=== PATIENT | female | born 1950 | race Caucasian/White ===

== ENCOUNTER 2019-02-08 09:50 | Outpatient (CLI) | payer BC ==
[2013-11-20 09:52] VITALS: O2SAT 97
== END 2019-02-08 09:51 | disposition home or self-care (01) ==
LOC: CONVCARE 09:50
PROVIDERS: ATTEND Orthopaedic Surgery
DX: M25.562 Pain in left knee (principal); M25.561 Pain in right knee; M17.0 Bilateral primary osteoarthritis of knee
CPT/HCPCS: 73560; 73565

== ENCOUNTER 2019-03-27 22:48 | Observation (INO) | payer BC, MEDICARE ==
[2019-03-27] MEDS ORDERED: MORPHINE SULFATE 10 MG/ML SOL IV ONE ×2 (23:08→23:55)
[2019-03-27] MEDS ORDERED: ONDANSETRON HCL 4 MG/2 ML SOL IV ONE (23:09)
[2019-03-27] MEDS ORDERED: MORPHINE SULFATE 10 MG/ML SOL ONE ×2 (23:15→23:56)
[2019-03-27] MEDS ORDERED: ONDANSETRON HCL 4 MG/2 ML SOL ONE (23:15)
[2019-03-27] MEDS ORDERED: SODIUM CHLORIDE 0.9% 1000ML 1,000 ML IV SCH (23:15)
[2019-03-27 23:28] LABS: APPEARANCE,URINE Clear; BILIRUBIN,URINE NEGATIVE (NEGATIVE); COLOR,URINE Yellow; GLUCOSE, URINE (UA) NEGATIVE (NEGATIVE); KETONES,URINE 2+ (NEGATIVE); LEUKOCYTE ESTERASE ,URINE NEGATIVE (NEGATIVE); NITRATE,URINE NEGATIVE (NEGATIVE); OCCULT BLOOD,URINE TRACE LYSED (NEG-TRACE); UROBILINOGEN,URINE 0.2 (0.2-1.0 EU)
[2019-03-27 23:36] LABS: BASOPHILS % (AUTO) 0 % (0-3); EOSINOPHILS % (AUTO) 0 % (0-9); HEMATOCRIT 40 % (35-47); HEMOGLOBIN 13.4 gm/dl (12.0-15.5); LYMPHOCYTES % (AUTO) 8.3 % (10-50); MEAN CORPUSCULAR HEMOGLOBIN 29.7 pg (27.0-32.0); MEAN CORPUSCULAR HGB CONC 33.4 gm/dl (32.0-36.0); MEAN CORPUSCULAR VOLUME 89 fL (81-99); MONOCYTES % (AUTO) 2.6 % (0-12); NEUTROPHILS % (AUTO) 88.3 % (37-80)
[2019-03-27 23:40] LABS: BACTERIA 2+ (< 1+); CRYSTALS NEGATIVE (0-3 AVE/HPF); EPITHELIAL CELLS 0-1 (SQUAMOUS); RBC,URINE 0-2 (0-3AV/HPF); WBC,URINE 0-1 (0-5AV/HPF)
[2019-03-27 23:42] LABS: BILIRUBIN,TOTAL 0.4 mg/dl (0.2-1.0); CALCIUM 8.8 mg/dl (8.5-10.1); CARBON DIOXIDE 26.2 mEq/L (21-32); CREATININE 1.01 mg/dl (0.60-1.00); POTASSIUM 3.8 mMol/L (3.5-5.1); TOTAL PROTEIN 7.2 gm/dl (6.4-8.2)
[2019-03-27 23:44] LABS: INR 0.97 (0.86-1.12)
[2019-03-28] MEDS ORDERED: AMPICILLIN/SULBACTAM 3 GM PDS 3 GM in SODIUM CHLORIDE 0.9% 100 ML 100 ML IV ONE (01:02)
[2019-03-28] MEDS ORDERED: AMPICILLIN/SULBACTAM 3 GM PDS ONE ×3 (01:18→12:28)
[2019-03-28] MEDS ORDERED: MORPHINE SULFATE 10 MG/ML SOL IV PRN ×2 (01:24→14:58)
[2019-03-28] MEDS ORDERED: SODIUM CHLORIDE 0.9% 1000ML 1,000 ML IV SCH (01:30)
[2019-03-28] MEDS: HYDROMORPHONE 1 MG/ML SYRINGE IV PRN ×3 (02:00→11:21)
[2019-03-28] MEDS: ONDANSETRON HCL 4 MG/2 ML SOL IV PRN ×2 (04:10→11:22)
[2019-03-28] MEDS ORDERED: SODIUM CHLORIDE 0.9% 100 ML 100 ML IV ONE ×2 (07:57→12:28)
[2019-03-28] MEDS: AMPICILLIN/SULBACTAM 3 GM PDS 3 GM in SODIUM CHLORIDE 0.9% 100 ML 100 ML IV SCH ×2 (08:04→15:39)
[2019-03-28] MEDS ORDERED: LACTATED RINGERS 1,000 ML IV SCH (11:30)
[2019-03-28] MEDS ORDERED: SUCCINYLCHOLINE CHLORIDE 20 MG/ML SOL IV ONE (12:06)
[2019-03-28] MEDS ORDERED: BUPIVACAINE/EPI 0.5% 10 ML SOL INFIL ONE (12:11)
[2019-03-28] MEDS ORDERED: FENTANYL 100MCG/2ML SOL ONE (12:11)
[2019-03-28] MEDS ORDERED: PROPOFOL 10 MG/ML 200 MG/20 ML EMU IV ONE (12:13)
[2019-03-28] MEDS ORDERED: PROPOFOL 500 MG/50 ML EMU IV ONE (12:13)
[2019-03-28] MEDS ORDERED: LIDOCAINE HCL 1% MPF 30 SOL ONE (12:13)
[2019-03-28] MEDS ORDERED: NEOSTIGMINE METHYLSULFATE 1 MG/ML SOL ONE (12:36)
[2019-03-28] MEDS ORDERED: RACEPINEPHRINE NEB 1 VIAL SOL ONE (13:16)
[2019-03-28] MEDS ORDERED: RACEPINEPHRINE NEB 1 VIAL SOL NEB PRN (14:16)
[2019-03-28] MEDS ORDERED: APAP/HYDROCODONE 1 EACH TABLET PO PRN (14:56)
[2019-03-28] MEDS ORDERED: KETOROLAC TROMETHAMINE 30 MG/ML SOL IV PRN (14:57)
[2019-03-28] MEDS ORDERED: SODIUM CHLORIDE 0.9% FLUSH 10 ML SOL IV SCH ×2 (15:45)
[2019-03-28 18:13] VITALS: BP 101/66; PULSE 91; RESP 16; TEMP 100.3; O2SAT 93
== END 2019-03-28 12:00 | disposition still patient (30) ==
LOC: ED 22:48 → ACUTE CARE 03-28 01:15 → UNDODISOB 03-28 19:05
PROVIDERS: ADMIT Family Medicine; ATTEND Family Medicine
DX: K35.80 Unspecified acute appendicitis (principal); R11.2 Nausea with vomiting, unspecified; K80.80 Other cholelithiasis without obstruction
CPT/HCPCS: 74177; 80053; 81001; 85025; 85610; 87088; 96365; 96374; 96375; 99001; 99070; 99236; 99285; J0295; J0330; J2270; J2405; J2710; J3010; Q9967; J1170; J2001; J2704; J3490